=== PATIENT | male | born 1975 | race African-American/Black ===

== ENCOUNTER 2017-08-04 09:03 | Emergency (ER) | payer MEDICAID ==
[~2017-08-04] VITALS: Ht 182.9 cm; Wt 75.0 kg
[~2017-08-04 09:03] MED LIST: AMOX-424 PO; HYDR-523 PO; IBUP-2028 PO; SULF1TAB48 PO
[2017-08-04 09:41] LABS: BASOPHILS % 0.3 % (0.0-2.0); EOSINOPHILS % 0.2 % (0.0-5.0); HEMATOCRIT. 29.5 % (42.0-52.0); HEMOGLOBIN. 9.8 g/dL (14.0-18.0); LYMPHOCYTES % 9.2 % (20.0-50.0); MEAN CORPUSCULAR VOLUME 92.9 fL (80.0-94.0); MEAN PLATELET VOLUME 9.6 fl (7.4-10.4); MONOCYTES % 5.1 % (2.0-8.0); NEUTROPHILS % 85.2 % (40.0-76.0); PLATELET 123 x1000/uL (130-400); RED BLOOD CELL COUNT 3.17 mill/uL (4.7-6.1); RED CELL DISTRIBUTION WIDTH 18.6 % (11.6-14.6)
[2017-08-04 09:50] LABS: INR 1.1; PROTHROMBIN TIME 11.5 sec (9.4-11.6)
[2017-08-04 09:56] LABS: CARBON DIOXIDE 28 mEq/L (21-32); CHLORIDE 96 mEq/L (98-107)
[2017-08-04] MEDS ORDERED: SODIUM CHLORIDE 0.9% 1,000 ML IV ONE (10:45)
[2017-08-04 10:56] LABS: GLUCOSE URINE NEGATIVE (NEGATIVE); KETONES URINE TRACE (NEGATIVE); LEUKOCYTE ESTERASE URINE TRACE (NEGATIVE); NITRITE URINE NEGATIVE (NEGATIVE); OCCULT BLOOD URINE NEGATIVE (NEGATIVE); PH URINE 6.5 (4.5-8.0); PROTEIN URINE NEGATIVE (NEGATIVE); SPECIFIC GRAVITY URINE 1.021 (1.005-1.030)
[2017-08-04 11:00] LABS: CLARITY URINE CLEAR (CLEAR); COLOR URINE DARK YELLOW (YELLOW)
[2017-08-04 13:46] VITALS: BP 134/76
== END 2017-08-04 13:50 | disposition home or self-care (01) ==
LOC: ER 09:07
DX: K59.00 Constipation, unspecified (principal); B19.20 Unspecified viral hepatitis C without hepatic coma; E87.1 Hypo-osmolality and hyponatremia; D64.9 Anemia, unspecified; F12.10 Cannabis abuse, uncomplicated
CPT/HCPCS: 36415; 71010; 76700; 80053; 81001; 83690; 85025; 85610; 93005; 96360; 99285; X7700; Z7610; J7030

== ENCOUNTER 2017-10-04 10:59 | Emergency (ER) | payer MEDICAID ==
[~2017-10-04] VITALS: Ht 188 cm; Wt 76.0 kg
[~2017-10-04 10:59] MED LIST changes: +HYDR-3513 PO
[2017-10-04 19:30] VITALS: BP 138/74
== END 2017-10-04 20:16 | disposition home or self-care (01) ==
LOC: ER 11:47
DX: L03.114 Cellulitis of left upper limb (principal); T63.301A Toxic effect of unspecified spider venom, accidental (unintentional), initial encounter; B99.8 Other infectious disease
CPT/HCPCS: 99284

== ENCOUNTER 2017-10-19 14:12 | Emergency (ER) | payer MEDICAID ==
[~2017-10-19] VITALS: Ht 180.3 cm; Wt 80.0 kg
[2017-10-19 14:13] VITALS: BP 103/69
== END 2017-10-19 20:35 | disposition left against medical advice (07) ==
LOC: ER 14:12
DX: Z53.21 Procedure and treatment not carried out due to patient leaving prior to being seen by health care provider (principal)

== ENCOUNTER 2021-01-21 16:17 | Emergency (ER) | payer MEDICARE, MEDICAID ==
[~2021-01-21] VITALS: Ht 185.4 cm; Wt 90.0 kg
[~2021-01-21 16:17] MED LIST changes: +AMOX-424 MT; -AMOX-424 PO; +SULF1TAB48 MT; -SULF1TAB48 PO
[2021-01-21] MEDS ORDERED: COMP-44 MC (18:35)
[2021-01-21 18:50] VITALS: BP 118/74
== END 2021-01-21 19:13 | disposition home or self-care (01) ==
LOC: ER 16:22
DX: R18.8 Other ascites (principal); I87.2 Venous insufficiency (chronic) (peripheral); L03.119 Cellulitis of unspecified part of limb; K75.9 Inflammatory liver disease, unspecified; K76.9 Liver disease, unspecified
CPT/HCPCS: 93005; 99283

== ENCOUNTER 2021-01-22 07:52 | Emergency (ER) | payer MEDICARE, MEDICAID ==
[~2021-01-22] VITALS: Ht 172.7 cm; Wt 88.0 kg
[~2021-01-22 07:52] MED LIST changes: +COMP-44 MC
[2021-01-22 09:09] LABS: BASOPHILS % 0.5 % (0.0-2.0); EOSINOPHILS % 0.7 % (0.0-5.0); HEMATOCRIT. 33.7 % (42.0-52.0); HEMOGLOBIN. 11.2 g/dL (14.0-18.0); MEAN CORPUSCULAR HEMOGLOBIN 31.3 pg (28.0-32.0); MEAN CORPUSCULAR VOLUME 94.6 fL (80.0-94.0); MONOCYTES % 6.8 % (2.0-8.0); RED BLOOD CELL COUNT 3.56 mill/uL (4.7-6.1); RED CELL DISTRIBUTION WIDTH 16.6 % (11.6-14.6)
[2021-01-22 09:16] LABS: INR 1.2; PROTHROMBIN TIME 12.4 sec (9.6-11.0)
[2021-01-22 09:18] LABS: PLATELET 39 x1000/uL (130-400)
[2021-01-22 09:21] LABS: CHLORIDE 110 mEq/L (98-107)
[2021-01-22 09:47] LABS: PLATELET ESTIMATE MARKEDLY DECREASED
[2021-01-22] MEDS ORDERED: LIDOCAINE HCL 1% 20ML VIAL (Pyxis) INJ ONE (10:19)
[2021-01-22] MEDS ORDERED: SODIUM BICARBONATE 4% (2.4MEQ) 5ML VIAL IV ONE (10:20)
[2021-01-22 13:10] VITALS: BP 104/65
== END 2021-01-22 13:10 | disposition home or self-care (01) ==
LOC: ER 07:52
DX: R18.8 Other ascites (principal); K74.60 Unspecified cirrhosis of liver; B17.0 Acute delta-(super) infection of hepatitis B carrier; Z86.19 Personal history of other infectious and parasitic diseases; Z20.822 Contact with and (suspected) exposure to COVID-19
CPT/HCPCS: 36415; 49083; 80053; 85025; 85610; 87426; 99285; J3490

== ENCOUNTER 2021-01-27 15:17 | Emergency (ER) | payer MEDICARE, MEDICAID ==
[~2021-01-27] VITALS: Ht 188 cm; Wt 82.0 kg
[2021-01-27 17:27] VITALS: BP 106/66
== END 2021-01-27 17:36 | disposition home or self-care (01) ==
LOC: ER 15:17
DX: K74.60 Unspecified cirrhosis of liver (principal); S60.211A Contusion of right wrist, initial encounter; Z79.899 Other long term (current) drug therapy; X58.XXXA Exposure to other specified factors, initial encounter; Y93.89 Activity, other specified; Y92.89 Other specified places as the place of occurrence of the external cause; Y99.8 Other external cause status
CPT/HCPCS: 99281